=== PATIENT | female | born 1965 | race African-American/Black ===

== ENCOUNTER 2022-10-27 14:24 | Emergency (ER) | payer MEDICAID ==
[~2022-10-27] VITALS: Ht 154.9 cm; Wt 104.3 kg
[2022-10-27 14:37] VITALS: O2SAT 100
[2022-10-27 15:39] LABS: BASOPHILS % 0.7 % (0.0-2.0); HEMATOCRIT. 34.5 % (36.0-48.0); HEMOGLOBIN. 10.8 g/dL (12.0-16.0); LYMPHOCYTES % 39.1 % (20.0-50.0); MEAN CORPUSCULAR VOLUME 70.5 fL (81.0-99.0); MEAN PLATELET VOLUME 8.5 fl (7.4-10.4); NEUTROPHILS % 50.2 % (40.0-76.0); PLATELET 211 x1000/uL (130-400); RED BLOOD CELL COUNT 4.89 mill/uL (4.2-5.4); RED CELL DISTRIBUTION WIDTH 14.5 % (11.6-14.6)
[2022-10-27 15:48] LABS: CHLORIDE 108 mEq/L (98-107)
[2022-10-27 15:51] LABS: PROTHROMBIN TIME 10.9 sec (9.6-11.0)
[2022-10-27] MEDS ORDERED: LIDOCAINE 5% PATCH TOP SCH (16:15)
[2022-10-27] MEDS ORDERED: KETOROLAC 60MG/2ML VIAL IM ONE (16:15)
[2022-10-27] MEDS ORDERED: LIDO1ADH23 TP (16:17)
[2022-10-27] MEDS ORDERED: METH-653 MT (16:17)
[2022-10-27] MEDS: METHOCARBAMOL 750MG TABLET PO SCH ×2 (16:59→17:00)
[2022-10-27] MEDS ORDERED: AMLO5TAB88 MT (17:10)
[2022-10-27 17:18] VITALS: BP 214/102; PULSE 72; RESP 20; TEMP 98
== END 2022-10-27 17:20 | disposition home or self-care (01) ==
LOC: ER 14:24
DX: M25.512 Pain in left shoulder (principal); I10 Essential (primary) hypertension
CPT/HCPCS: 80053; 83880; 85025; 85610; 84484; 36415; 71045; 73030; 93005; 96372; 99285; J1885; Z7610

== ENCOUNTER 2022-12-24 19:58 | Emergency (ER) | payer MEDICAID, OTHER ==
[~2022-12-24] VITALS: Ht 154.9 cm; Wt 104.0 kg
[~2022-12-24 19:58] MED LIST: AMLO5TAB88 MT; LIDO1ADH23 TP; METH-653 MT
[2022-12-24 20:09] VITALS: O2SAT 98
[2022-12-24] MEDS ORDERED: P20 MT (21:09)
[2022-12-24 23:19] VITALS: BP 144/81; PULSE 98; RESP 18; TEMP 98.3
== END 2022-12-24 23:28 | disposition home or self-care (01) ==
LOC: ER 19:58
DX: G56.02 Carpal tunnel syndrome, left upper limb (principal)
CPT/HCPCS: 73090; 99283